=== PATIENT | male | born 1995 | race Two or more races ===

== ENCOUNTER 2024-09-17 11:20 | Inpatient (IN) | payer MEDICAID ==
[2024-09-17 12:37] LABS: Amphetamine Screen,Urine Not Detected (NotDetected); Barbiturate Screen,Urine Not Detected (NotDetected); Benzodiazepines Screen,Urine Detected (NotDetected); Cocaine Screen,Urine Not Detected (NotDetected); Methadone Screen, Urine Not Detected (NotDetected); Opiate Screen,Urine Not Detected (NotDetected); Oxycodone Screen, Urine Not Detected (NotDetected); Phencyclidine Screen,Urine Not Detected (NotDetected); Tricyclic Antidepressant,Urine Not Detected (NotDetected); Urn Cannabinoid Scrn Not Detected (NotDetected)
--- NOTE | 2024-09-17 13:07 | ED ---
Psych HPI - General Chief Complaint: Psychiatric Symptoms Stated Complaint: Mental health eval Time Seen by Provider: 09/17/24 11:26 Source: patient, RN notes reviewed Mode of arrival: ambulatory Limitations: no limitations - History of Present Illness Initial Comments: 29-year-old male presents emergency department chief complaint of needing psychiatric help. Patient states having worsening anxiety, panic attacks and downward spiral. Patient states that last few days he is been just taking excess amount of Xanax to help with his symptoms. He does see current psychiatry, and primary care physician. Patient states that symptoms are not helping. He states he has used hallucinogenic illicit drugs in the past. Patient denies any significant alcohol abuse denies current suicidal thoughts but states he does feel hopeless and does not want to live like this anymore. - Related Data Allergies Allergy/AdvReac Type Severity Reaction Status Date / Time No Known Allergies Allergy Verified 09/17/24 11:26 Review of Systems ROS Statement: Those systems with pertinent positive or pertinent negative responses have been documented in the HPI. ROS Other: All systems not noted in ROS Statement are negative. Past Medical History Past Medical History: No Reported History Past Surgical History: No Surgical Hx Reported Past Psychological History: Anxiety, Depression General Exam Limitations: no limitations General appearance: alert, in no apparent distress Head exam: Present: atraumatic, normocephalic, normal inspection Eye exam: Present: normal appearance, PERRL, EOMI. Absent: scleral icterus, conjunctival injection, periorbital swelling ENT exam: Present: normal exam, normal oropharynx, mucous membranes moist Neck exam: Present: normal inspection, full ROM. Absent: tenderness, meningismus, lymphadenopathy Respiratory exam: Present: normal lung sounds bilaterally. Absent: respiratory distress, wheezes, rales, rhonchi, stridor Cardiovascular Exam: Present: regular rate, normal rhythm, normal heart sounds. Absent: systolic murmur, diastolic murmur, rubs, gallop, clicks Neurological exam: Present: alert, oriented X3, CN II-XII intact Psychiatric exam: Present: flat affect Course Vital Signs 09/17/24 11:23 Temperature 98.6 F Pulse Rate 92 Respiratory 16 Rate Blood Pressure 141/96 O2 Sat by Pulse 99 Oximetry Medical Decision Making - Medical Decision Making Was pt. sent in by a medical professional or institution (, PA, FOCUSED FACTORY MANAGER, urgent care, hospital, or residential...) When possible be specific @ -No Did you speak to anyone other than the patient for history (EMS, parent, family, police, friend...)? What history was obtained from this source @ -No Did you review nursing and triage notes (agree or disagree)? Why? @ -I reviewed and agree with nursing and triage notes Were old charts reviewed (outside hosp., previous admission, EMS record, old EKG, old radiological studies, urgent care reports/EKG's, residential records)? Report findings @ -No old charts were reviewed Differential Diagnosis (chest pain, altered mental status, abdominal pain women, abdominal pain men, vaginal bleeding, weakness, fever, dyspnea, syncope, heada peyman, dizziness, GI bleed, back pain, seizure, CVA, palpatations, mental health, musculoskeletal)? @ -Differential Mental Health Depression, anxiety, bipolar, psychosis, schizophrenia, borderline personality, situational depression, adjustment disorder, behavioral disorder, brain tumor, malingering, substance abuse, encephalopathy, medication reaction, dementia, hypothyroidism, degenerative neurologic disorder, lupus.... This is not meant to be all-inclusive list EKG interpreted by me (3pts min.). @ -None X-rays interpreted by me (1pt min.). @ -None done CT interpreted by me (1pt min.). @ -None done U/S interpreted by me (1pt. min.). @ -None done What testing was considered but not performed or refused? (CT, X-rays, U/S, labs)? Why? @ -None What meds were considered but not given or refused? Why? @ -None Did you discuss the management of the patient with other professionals (professionals i.e. , PA, FOCUSED FACTORY MANAGER, lab, RT, psych nurse, high school social studies tutor, asset recovery specialist, teacher, code enforcement officer, outsole caser)? Give summary @ -EPS, psychiatry evaluated patient recommends inpatient treatment Was smoking cessation discussed for >3mins.? @ -No Was critical care preformed (if so, how long)? @ -No Were there social determinants of health that impacted care today? How? (Homelessness, low income, unemployed, alcoholism, drug addiction, transportation, low edu. Level, literacy, decrease access to med. care, care home, rehab)? @ -No Was there de-escalation of care discussed even if they declined (Discuss DNR or withdrawal of care, Hospice)? DNR status @ -No What co-morbidities impacted this encounter? (DM, HTN, Smoking, COPD, CAD, Cancer, CVA, ARF, Chemo, Hep., AIDS, mental health diagnosis, sleep apnea, morbid obesity)? @ -anxiety Was patient admitted / discharged? Hospital course, mention meds given and route, prescriptions, significant lab abnormalities, going to OR and other pertinent info. @ -Admit to 3 W. for treatment] Undiagnosed new problem with uncertain prognosis? @ -No Drug Therapy requiring intensive monitoring for toxicity (Heparin, Nitro, Insulin, Cardizem)? @ -No Were any procedures done? @ -No Diagnosis/symptom? @ -Depression, anxiety Acute, or Chronic, or Acute on Chronic? @ -Acute Uncomplicated (without systemic symptoms) or Complicated (systemic symptoms)? @ -Complicated Side effects of treatment? @ -No Exacerbation, Progression, or Severe Exacerbation? @ -No Poses a threat to life or bodily function? How? (Chest pain, [place], [place], pneumonia, PE, COPD, DKA, ARF, appy, cholecystitis, CVA, Diverticulitis, Homicidal, Suicidal, threat to staff... and all critical care pts) @ -No - Lab Data Lab Results 09/17/24 09/17/24 Range/Units 11:55 12:12 Urine Opiates Screen Not Detected (NotDetected) Ur Oxycodone Screen Not Detected (NotDetected) Urine Methadone Screen Not Detected (NotDetected) Ur Barbiturates Screen Not Detected (NotDetected) U Tricyclic Antidepress Not Detected (NotDetected) Ur Phencyclidine Scrn Not Detected (NotDetected) Ur Amphetamines Screen Not Detected (NotDetected) U Methamphetamines Scrn Not Detected (NotDetected) U Benzodiazepines Scrn Detected H (NotDetected) Urine Cocaine Screen Not Detected (NotDetected) U Marijuana (THC) Screen Not Detected (NotDetected) SARS-CoV-2 (PCR) Not Detected (Not Detectd) Disposition Clinical Impression: Depression, Acute anxiety Disposition: TRANSFER TO PSYCH HOSP/UNIT Referrals: Nonstaff,Physician [Primary Care Provider] - 1-2 days Time of Disposition: 14:02
[2024-09-17] MEDS ORDERED: IBUPROFEN 600 MG TAB PO PRN (14:09)
[2024-09-17] MEDS ORDERED: MAG HYDROX/AL HYDROX/SIMETH 355 ML BOTTLE PO PRN (14:09)
[2024-09-17] MEDS ORDERED: MAGNESIUM HYDROXIDE 2,400 MG/30 ML CUP PO PRN (14:09)
[2024-09-17] MEDS ORDERED: hydrOXYzine HCL 50 MG/ML 1 ML VIAL IM PRN (14:12)
[2024-09-17] MEDS ORDERED: OLANZapine 5 MG TAB PO PRN (14:12)
[2024-09-17] MEDS ORDERED: OLANZapine 10 MG VIAL IM PRN (14:12)
[2024-09-17] MEDS ORDERED: traZODone HCL 50 MG TAB PO PRN (14:12)
[2024-09-17] MEDS: NICOTINE 14MG/24HR PATCH TRANSDERM SCH (15:21)
[2024-09-17 17:35] LABS: Appearance,Urine Clear (Clear); Bilirubin,Urine Negative (Negative); Blood,Urine Negative (Negative); Color,Urine Yellow; Glucose,Urine (UA) Negative (Negative); Ketones,Urine Negative (Negative); Leukocyte Esterase,Urine Negative (Negative); Nitrite,Urine Negative (Negative); Protein,Urine Negative (Negative); Specific Gravity,Urine 1.026 (1.001-1.035); Urobilinogen,Urine <2.0 mg/dL (<2.0)
[2024-09-18 08:32] LABS: Basophils # (A) 0.1 k/uL (0-0.2); Basophils % (A) 1 %; Eosinophils # (A) 0.1 k/uL (0-0.7); Eosinophils % (A) 2 %; HCT 48.5 % (39.0-53.0); HGB 15.6 gm/dL (13.0-17.5); Lymphocytes # (A) 1.7 k/uL (1.0-4.8); Lymphocytes % (A) 25 %; MCH 26.9 pg (25.0-35.0); MCHC 32.1 g/dL (31.0-37.0); MCV 83.8 fL (80.0-100.0); Mean Platelet Volume 6.6; Monocytes # (A) 0.5 k/uL (0-1.0); Monocytes % (A) 7 %; Neutrophils # (A) 4.4 k/uL (1.3-7.7); Neutrophils % (A) 63 %; Platelet Count 376 k/uL (150-450); RBC 5.78 m/uL (4.30-5.90); RDW 12.8 % (11.5-15.5)
[2024-09-18 09:25] LABS: ALT 202 U/L (4-49); AST 57 U/L (17-59); African American GFR (CKD) >90 (>60 ml/min/1.73 sqM); Albumin 4.8 g/dL (3.5-5.0); Alkaline Phosphatase 61 U/L (38-126); Anion Gap 12 mmol/L; Blood Urea Nitrogen 15 mg/dL (9-20); Carbon Dioxide 28 mmol/L (22-30); Chloride 100 mmol/L (98-107); Glucose 92 mg/dL (74-99); Non-African American GFR(CKD) 81 (>60 ml/min/1.73 sqM); Potassium 4.8 mmol/L (3.5-5.1); Sodium 140 mmol/L (137-145); Total Bilirubin 0.8 mg/dL (0.2-1.3); Total Protein 8.3 g/dL (6.3-8.2)
[2024-09-18] MEDS: ACETAMINOPHEN TAB 325 MG TAB PO PRN (12:31)
[2024-09-18] MEDS: ARIPiprazole 5 MG TAB PO SCH (12:32)
[2024-09-18] MEDS ORDERED: clonazePAM 0.5 MG TAB PO PRN (12:55)
--- NOTE | 2024-09-18 13:05 | P.HP ---
Psychiatric H&P - . H&P Date: 09/18/24 History & Physical: Allergies Allergy/AdvReac Type Severity Reaction Status Date / Time No Known Allergies Allergy Verified 09/17/24 11:26 Vital Signs Temp 97.8 F 09/17/24 14:28 Pulse 79 09/17/24 14:28 Resp 16 09/17/24 14:28 BP 157/92 09/17/24 14:28 Pulse Ox 98 09/17/24 14:28 FiO2 Intake & Output 09/17/24 09/18/24 09/18/24 18:59 06:59 18:59 Weight 66.48 kg Laboratory Last Values WBC 7.0 k/uL (3.8-10.6) 09/18/24 08:05 RBC 5.78 m/uL (4.30-5.90) 09/18/24 08:05 Hgb 15.6 gm/dL (13.0-17.5) 09/18/24 08:05 Hct 48.5 % (39.0-53.0) 09/18/24 08:05 MCV 83.8 fL (80.0-100.0) 09/18/24 08:05 MCH 26.9 pg (25.0-35.0) 09/18/24 08:05 MCHC 32.1 g/dL (31.0-37.0) 09/18/24 08:05 RDW 12.8 % (11.5-15.5) 09/18/24 08:05 Plt Count 376 k/uL (150-450) 09/18/24 08:05 MPV 6.6 09/18/24 08:05 Neutrophils % 63 % 09/18/24 08:05 Lymphocytes % 25 % 09/18/24 08:05 Monocytes % 7 % 09/18/24 08:05 Eosinophils % 2 % 09/18/24 08:05 Basophils % 1 % 09/18/24 08:05 Neutrophils # 4.4 k/uL (1.3-7.7) 09/18/24 08:05 Lymphocytes # 1.7 k/uL (1.0-4.8) 09/18/24 08:05 Monocytes # 0.5 k/uL (0-1.0) 09/18/24 08:05 Eosinophils # 0.1 k/uL (0-0.7) 09/18/24 08:05 Basophils # 0.1 k/uL (0-0.2) 09/18/24 08:05 Sodium 140 mmol/L (137-145) 09/18/24 08:05 Potassium 4.8 mmol/L (3.5-5.1) 09/18/24 08:05 Chloride 100 mmol/L (98-107) 09/18/24 08:05 Carbon Dioxide 28 mmol/L (22-30) 09/18/24 08:05 Anion Gap 12 mmol/L 09/18/24 08:05 BUN 15 mg/dL (9-20) 09/18/24 08:05 Creatinine 1.21 mg/dL (0.66-1.25) 09/18/24 08:05 Est GFR (CKD-EPI)AfAm >90 (>60 ml/min/1.73 sqM) 09/18/24 08:05 Est GFR (CKD-EPI)NonAf 81 (>60 ml/min/1.73 sqM) 09/18/24 08:05 Glucose 92 mg/dL (74-99) 09/18/24 08:[address] Glu mg/dL 108 mg/dL 09/18/24 08:05 Hemoglobin A1c 5.4 % (<=6.0) 09/18/24 08:05 Calcium 10.0 mg/dL (8.4-10.2) 09/18/24 08:05 Total Bilirubin 0.8 mg/dL (0.2-1.3) 09/18/24 08:05 AST 57 U/L (17-59) 09/18/24 08:05 ALT 202 U/L (4-49) H 09/18/24 08:05 Alkaline Phosphatase 61 U/L (38-126) 09/18/24 08:05 Total Protein 8.3 g/dL (6.3-8.2) H 09/18/24 08:05 Albumin 4.8 g/dL (3.5-5.0) 09/18/24 08:05 TSH 2.590 mIU/L (0.465-4.680) 09/18/24 08:05 Urine Color Yellow 09/17/24 12:12 Urine Appearance Clear (Clear) 09/17/24 12:12 Urine pH 6.0 (5.0-8.0) 09/17/24 12:12 Ur Specific [place] 1.026 (1.001-1.035) 09/17/24 12:12 Urine Protein Negative (Negative) 09/17/24 12:12 Urine Glucose (UA) Negative (Negative) 09/17/24 12:12 Urine Ketones Negative (Negative) 09/17/24 12:12 Urine Blood Negative (Negative) 09/17/24 12:12 Urine Nitrite Negative (Negative) 09/17/24 12:12 Urine Bilirubin Negative (Negative) 09/17/24 12:12 Urine Urobilinogen <2.0 mg/dL (<2.0) 09/17/24 12:12 Ur Leukocyte Esterase Negative (Negative) 09/17/24 12:12 Urine Opiates Screen Not Detected (NotDetected) 09/17/24 12:12 Ur Oxycodone Screen Not Detected (NotDetected) 09/17/24 12:12 Urine Methadone Screen Not Detected (NotDetected) 09/17/24 12:12 Ur Barbiturates Screen Not Detected (NotDetected) 09/17/24 12:12 U Tricyclic Antidepress Not Detected (NotDetected) 09/17/24 12:12 Ur Phencyclidine Scrn Not Detected (NotDetected) 09/17/24 12:12 Ur Amphetamines Screen Not Detected (NotDetected) 09/17/24 12:12 U Methamphetamines Scrn Not Detected (NotDetected) 09/17/24 12:12 U Benzodiazepines Scrn Detected (NotDetected) H 09/17/24 12:12 Urine Cocaine Screen Not Detected (NotDetected) 09/17/24 12:12 U Marijuana (THC) Screen Not Detected (NotDetected) 09/17/24 12:12 SARS-CoV-2 (PCR) Not Detected (Not Detectd) 09/17/24 11:55 09/18/24 11:15 IDENTIFYING DATA: Patient is a 29-year-old male, single, lives with his brother in a condo, he has no kids, he is a outside residential sales professional working in [place] HPI: Patient presented to the hospital as a transfer from [place] for psychiatric evaluation. Patient was seen by EPS nurse and according to note "Upon assessment pt is under the blankets with his head nearly covered. Pt is cooperative with RN. Pt states that he has been struggling with a lack of reality. He feels he is not apart of this world. He feels he is disassociating more often. He states that he is finding it hard to work, eat, sleep, and care for hus household. He states that he has been hypersensitive, detached, and panicking. He feels withdrawn from everything and everyone. He believes stress does trigger alot of what he is feeling. 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 He does not use supports, he states he could speak with his parents but doesn't have them to worry or be a burden. He states he does have SI and worries about his safety. He denies any current plan. Pt denies HI or hallucinations. Pt does states that he does feel paranoid. "It feels like I am going crazy". He has a decreased appetite. Lack of sleep d/t being hyperaware and nervous/scared. He states that his hygiene has been "okay". Pts room does smell of sweat and appears slightly disheleved. Pt states that he is not caring for his household and doesn't clean. He states that he is scared and just stays in bed to distract himself. He states d/t this he has had to take a 6 week leave from work because he is not functioning as he normally does. Pt denies access to guns or weapons. Pt denies recent substance use or etoh. BAT 0. Pt does admit to using mushrooms from 2022 to October of 2023 and stopped d/t having to go to the hospital for a bad reaction. Pt fears for his safety." Patient was seen today agreeable to speak to song writer in the office. He was fairly cooperative during the interview, claims that he has a history of depression, claims that he tried Lexapro and 2021 however felt that he had "emotional blunting" and stopped taking the medications. States that he attempted to try psychedelic mushrooms in 2022 2023 time, last dose was in October 2023. States that it was giving him a "bad trip" and states that he was "losing correction[facility] facility psychiatrist on reality". States that he felt that his senses were more heightened and claims that since he is having more stress at work and also studying for exams he feels that he is still "tripping" from it since he has not been on it for quite some time. Claims that this is also leading to increased anxiety, using Xanax for panic attacks. States that he has been having mild depression at this time. Not endorsing any paranoia or or delusions. Claims that his sleep has been on and off, has been getting good help with the Remeron. Claims that his appetite has been on and off. States that he was having passive suicidal thoughts as he "did not want to live this way" however no specific plan, denying any homicidal ideations. At this time patient denies any auditory or visual hallucinations. Patient denies any flight of ideas racing thoughts and increased in goal directed behavior. Patient admits to using no other recreational drugs at this time cigarettes or marijuana. Patient's last use of hallucinogenic mushrooms were in October 2023. PAST PSYCHIATRIC HISTORY: Patient has a history of depression/anxiety. Claims that he has been on several different medications including Remeron, Lexapro, Xanax Zoloft and also Risperdal however some of these medications have made his symptoms worse. Patient denies any previous psychiatric hospitalizations. Claims that he did see a psychiatric nurse practitioner once before coming to the hospital. Patient denies any history of suicide attempts in the past. PMH: as per ER note ALLERGIES: as per EMR CHEMICAL DEPENDENCY HISTORY: as per HPI FAMILY PSYCHIATRIC/SUBSTANCE USE HISTORY: Claims that his brother has some form of "delusional disorder", also claims that his father was briefly on anti psychotics however not any longer SOCIAL HISTORY: Patient was born and raised in [place] [facility] 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 Denies ever been to fdc or senior care. He is single he has no kids. He lives in a condo with his brother. MENTAL STATUS EXAM: General Appearance: Patient appears to be short in stature, well-groomed, stated age is alert, directable, and attempts to cooperate. Patient appears to have fair hygiene and grooming. Behavior: Patient is seated without any agitated behavior. Cooperative Speech: Patient's speech is fluent and nonpressured. Mildly hesitant at times Mood/Affect: Patient reports their mood is "a bit depressed", affect is congruent Suicidality/Homicidality: Patient denies having any homicidal ideation intent or plan. Denies any suicidal ideations intent or plan Perceptions: Patient denies any visual hallucinations and denies any auditory hallucinations. He is stating that the lights and sounds are more magnified in the room however. Though content/process: There is no evidence of any delusional thought content and thought process is linear and goal-directed. Memory and concentration: AOX3, grossly intact for the purposes of this session. Can spell "WORLD" backwards Judgment and insight: Fair STRENGTHS/WEAKNESSES: strength is that patient is resilient. Weakness is that patient used psychedelic mushrooms heavily in the past, is also dealing with a lot of stressors from work and also home life INTELLECT: High IMPRESSIONS: Unspecified psychosis, rule out schizophrenia vs schizoaffective disorder vs drug induced psychosis vs persistent hallucinogenic perceptual disorder Hallucinogen use PLAN: -Patient is admitted under voluntary status to MHU for stabilization of psychiatric symptoms and safety. Patient has signed adult voluntary form and medication consent and is placed in patient's chart. -Medications : Patient is agreeable to try Abilify 2.5 mg daily for psychosis/mood stabilization/anxiety, remeron 7.5 mg qhs for insomnia/mood/sleep -klonopin, vistaril and zyprexa PRN for agitation/aggression and anxiety -Patient was counselled on substance abuse and desired to cut back on use -Patient was informed of the risks, benefits and side effects of the medication and patient verbally consented to taking the medications. Patient signed med con sent form and was placed in chart. -Internal Medicine consult to perform medical evaluation and physical. -NRT -not needed as patient does not smoke -SW on board for discharge planning. Encourage patient to participate in groups to work on coping skills. 09/18/24 12:56
--- NOTE | 2024-09-18 16:05 | P.CONS ---
History of Present Illness - History of Present Illness Patient is a 29-year-old male with past medical history of depression,, who was transferred for voluntary psychiatric hospitalization, evaluation of Unspecified psychosis, rule out schizophrenia vs schizoaffective disorder vs drug induced psychosis vs persistent hallucinogenic perceptual disorder Hallucinogen use Internal medicine consulted for medical management. Patient's vitals, remarkable for elevated BP reading 141/96, 157/92, 124., Afebrile, heart rate in the 70s, satting well on room air. CBC unremarkable, CMP remarkable for ALT 202. Urinalysis negative, urine toxicology for acute abnormalities, chronic symptoms. Pertinent positives and negatives as discussed in HPI, a complete review of systems was performed and all other systems are negative. Family history significant for hypertension, CAD CABG patient's father No personal history of hypertension, diabetes, hyperlipidemia. BMI is normal. Today complains of sinus congestion Patient seen and examined at bedside. [] Vital signs reviewed General: nontoxic, no distress, appears at stated age Derm: warm, dry Head: atraumatic, normocephalic, symmetric Eyes: EOMI, no lid lag, anicteric sclera, pupils equal round reactive to light ENT: Nose and ears atraumatic Neck: No thyromegaly, supple Mouth: no lip lesion, mucus membranes moist Cardiovascular: S1S2 reg, no murmur, no edema Lungs: clear to auscultation bilateral, no rhonchi, no rales, no wheeze, no accessory muscle use Abdominal: soft, nontender to palpation, no guarding, no appreciable organomegaly Ext: no gross muscle atrophy, muscle strength muscle strength 5 out of 5 in all 4 extremities, no contractures Neuro: CN II-XII grossly intact Psych: Alert, oriented, appropriate affect Assessment/Plan: Elevated blood pressure readings without diagnosis of hypertension -Monitor blood pressure. Possibly related to psychiatric condition -TSH normal, A1c normal Elevated ALT -Repeat CMP, possibly drug related Unspecified psychosis -psychiatry folloging Acute sinusitis: -loratadine daily, flonase. NO pseudofed duet to elevated BP Past Medical History Past Medical History: No Reported History History of Any Multi-Drug Resistant Organisms: None Reported Past Surgical History: Orthopedic Surgery Additional Past Surgical History / Comment(s): R arm surgery in childhood Past Anesthesia/Blood Transfusion Reactions: No Reported Reaction Past Psychological History: Anxiety, Depression Smoking Status: Never smoker - Past Family History Father Family Medical History: Coronary Artery Disease (CAD), Diabetes Mellitus Medications and Allergies Home Medications Medication Instructions Recorded Confirmed Type ALPRAZolam [Xanax] 0.25 mg PO DAILY PRN 09/17/24 09/17/24 History Mirtazapine [Remeron] 30 mg PO HS 09/17/24 09/17/24 History risperiDONE [RisperDAL] 0.125 mg PO HS 09/17/24 09/17/24 History Allergies Allergy/AdvReac Type Severity Reaction Status Date / Time No Known Allergies Allergy Verified 09/17/24 11:26 Physical Exam Vitals: Vital Signs Pulse Resp BP 09/18/24 12:53 82 16 134/68 Results CBC & Chem 7: 09/18/24 08:05 09/18/24 08:05 Labs: Abnormal Lab Results - Last 24 Hours (Table) 09/18/24 Range/Units 08:05 ALT 202 H (4-49) U/L Total Protein 8.3 H (6.3-8.2) g/dL
[2024-09-18] MEDS: FLUTICASONE NASAL 50MCG/SPRAY 16GM BTL EA NOSTRIL SCH (17:16)
[2024-09-18] MEDS: LORATADINE 10 MG TAB PO SCH (17:16)
[2024-09-18] MEDS: hydrOXYzine pamoate 25 MG CAP PO PRN (18:42)
[2024-09-18] MEDS: MIRTAZAPINE 15 MG TAB PO SCH (20:37)
[2024-09-19 08:49] LABS: ALT 149 U/L (4-49); AST 40 U/L (17-59); African American GFR (CKD) >90 (>60 ml/min/1.73 sqM); Albumin 4.7 g/dL (3.5-5.0); Alkaline Phosphatase 59 U/L (38-126); Anion Gap 12 mmol/L; Blood Urea Nitrogen 14 mg/dL (9-20); Calcium 9.8 mg/dL (8.4-10.2); Carbon Dioxide 28 mmol/L (22-30); Chloride 99 mmol/L (98-107); Glucose 113 mg/dL (74-99); Non-African American GFR(CKD) 84 (>60 ml/min/1.73 sqM); Potassium 4.4 mmol/L (3.5-5.1); Sodium 139 mmol/L (137-145); Total Bilirubin 0.5 mg/dL (0.2-1.3)
--- NOTE | 2024-09-19 11:49 | P.PN ---
Progress Note - Text Progress Note Date: 09/19/24 Interval history: Patient was seen today for psychiatric follow-up. Patient was seen taking part in group today doing a puzzle. He claims that after taking the Abilify he was feeling worse in terms of his visual and sensation perceptions. Claims that he is not feeling any better today, did not take Abilify this morning. States that the Vistaril did help a little bit for anxiety. He claims that he is feeling mild paranoia and mostly anxiety about not feeling better. Claims that he slept on and off last night with the Remeron. Claims that he is attempting to eat however appetite is still poor. We spoke about other medication options he is agreeable to try Lamictal and also clonidine. We spoke about the possibility of a rash from the Lamictal and to monitor his skin, he verbally understood and agreed. At this time he is denying any suicidal homicidal ideations intent or plan, denying any auditory hallucinations. MENTAL STATUS EXAM: General Appearance: Patient appears to be short in stature, well-groomed, stated age is alert, directable, and attempts to cooperate. Patient appears to have fair hygiene and grooming. Behavior: Patient is seated without any agitated behavior. Cooperative Speech: Patient's speech is fluent and nonpressured. Hesitant Mood/Affect: Patient reports their mood is "not that good", affect is congruent Suicidality/Homicidality: Patient denies having any homicidal ideation intent or plan. Denies any suicidal ideations intent or plan Perceptions: Patient denies any visual hallucinations and denies any auditory hallucinations. He is stating that the lights and sounds are more magnified in the room however, this is unchanged from yesterday Though content/process: There is no evidence of any delusional thought content and thought process is linear and goal-directed. [place] Memory and concentration: AOX3, grossly intact for the purposes of this session Judgment and insight: Fair IMPRESSIONS: Unspecified psychosis, rule out schizophrenia vs schizoaffective disorder vs drug induced psychosis vs persistent hallucinogenic perceptual disorder Hallucinogen use PLAN: -Patient is admitted under voluntary status to MHU for stabilization of psychiatric symptoms and safety. Patient has signed adult voluntary form and medication consent and is placed in patient's chart. -Medications : Discontinue Abilify due to lack of efficacy, he is agreeable to try Lamictal 25 mg bid for visual disturbances/mood stabilization, remeron 7.5 mg qhs for insomnia/mood/sleep. clonidine 0.1 mg qhs for sleep/visual disturbances. -klonopin, vistaril and zyprexa PRN for agitation/aggression and anxiety -NRT - not needed as patient does not smoke -SW on board for discharge planning. Encourage patient to participate in groups to work on coping skills.
[2024-09-19] MEDS: lamoTRIgine 25 MG TAB PO SCH (12:00)
[2024-09-19] MEDS: cloNIDine HCL 0.1 MG TAB PO SCH (21:03)
--- NOTE | 2024-09-20 11:10 | P.PN ---
Progress Note - Text Progress Note Date: 09/20/24 Interval history: Patient was seen wandering the hallways and was directable and agreeable to s peak with blog writer. Patient claims that he is still feeling a bit anxious at this time however does claim that the Lamictal did help a bit with the visual disturbances and also with his anxiety. Claims that his mood is also improving mildly since yesterday. States that he feels the Remeron did throw him off with sleep and would prefer to just stay on the clonidine and use trazodone as needed. He is more visible on the unit, is feeling more optimistic. Claims that he slept on and off last night appetite improving. At this time patient denies any suicidal or homicidal ideations intent or plan. Denies any Auditory or visual hallucinations. Patient denies any side effects from the medications and has been compliant with meds. Mental status exam: General Appearance: Patient appears to be short in stature, stated age is alert, directable, and cooperative. Behavior: No agitated behavior. Patient is calm and directable attempts to cooperate Speech: Patient's speech is fluent and nonpressured. Soft tone Mood/Affect: Mood is improving mildly, affect is congruent Suicidality/Homicidality: Patient denies having any suicidal or homicidal ideation intent or plan. Perceptions: Patient denies any auditory or visual hallucinations. Though content/process: There is no evidence of any delusional thought content and thought process is linear and goal-directed. Memory and concentration: AOX3, grossly intact for the purposes of this session Judgment and insight: improving mildly Assessment/Plan: Continue with current diagnosis. Patient continues to meet criteria for inpatient psychiatric admission for symptom stabilization and safety. Patient will be maintained on current psychotropic medication regimen, with the exception of discontinuing Remeron. Monitor for medication compliance and for any psychotropic medication side effects. Will continue to monitor ongoing response to treatment. Encouraged participation in milieu.
--- NOTE | 2024-09-21 12:32 | P.PN ---
Progress Note - Text Progress Note Date: 09/21/24 Interval history: Patient was seen wandering the hallways and was directable and agreeable to s peak with abstract writer. He claims that he is doing puzzles, participating in groups. States that his anxiety level is still a bit elevated however is improving. Claims that his mood is also improving. States that his parents have been fairly supportive his mother came to visit him yesterday. States that he has been having improvement in his visual disturbances and color patterns. Claims that he did have difficulty sleeping at nighttime and claims that a lot of it is mainly because of his roommate. He was agreeable to try a small dose of trazodone tonight. He is more visible on the unit, is feeling more optimistic. At this time patient denies any suicidal or homicidal ideations intent or plan. Denies any Auditory or visual hallucinations. Patient denies any side effects from the medications and has been compliant with meds. Mental status exam: General Appearance: Patient appears to be short in stature, stated age is alert, directable, and cooperative. Behavior: No agitated behavior. Patient is calm and directable attempts to cooperate, improving mildly Speech: Patient's speech is fluent and nonpressured. Soft tone improving mildly Mood/Affect: Mood is improving mildly, affect is congruent Suicidality/Homicidality: Patient denies having any suicidal or homicidal ideation intent or plan. Perceptions: Patient denies any auditory or visual hallucinations. Though content/process: There is no evidence of any delusional thought content and thought process is linear and goal-directed. Memory and concentration: AOX3, grossly intact for the purposes of this session Judgment and insight: improving mildly Assessment/Plan: Continue with current diagnosis. Patient continues to meet criteria for inpatient psychiatric admission for symptom stabilization and safety. Patient will be maintained on current psychotropic medication regimen, added trazodone 25 mg nightly for insomnia/mood. Increase Lamictal to 25 mg 3 times daily. He is not reporting any rash at this time, continuing to monitor this. Monitor for medication compliance and for any psychotropic medication side effects. Will continue to monitor ongoing response to treatment. Encouraged participation in milieu.
[2024-09-21] MEDS: lamoTRIgine 25 MG TAB PO SCH (16:02)
[2024-09-21] MEDS: traZODone HCL 50 MG TAB PO SCH (21:54)
--- NOTE | 2024-09-22 10:27 | P.PN ---
Progress Note - Text Progress Note Date: 09/22/24 Interval history: Patient was seen wandering the hallways and was directable and agreeable to s peak with filing writer. Patient was also seen playing cards earlier today with other patients. Claims that he is trying to busy doing activities on the unit. Claims that he feels that the trazodone did not sit well with him, made him too groggy in the morning. He prefers to be on melatonin which she will try tonight. Claims that the overall visual disturbances and delusions have improved since yesterday. Has been speaking with his family over the phone and are supportive of him. Has been eating well, showering. At this time patient denies any suicidal or homicidal ideations intent or plan. Denies any Auditory or visual hallucinations. Patient denies any side effects from the medications and has been compliant with meds. Mental status exam: General Appearance: Patient appears to be short in stature, stated age is alert, directable, and cooperative. Behavior: No agitated behavior. Patient is calm and directable attempts to cooperate, improving mildly Speech: Patient's speech is fluent and nonpressured. Soft tone improving mildly Mood/Affect: Mood is improving mildly, affect is congruent Suicidality/Homicidality: Patient denies having any suicidal or homicidal ideation intent or plan. Perceptions: Patient denies any auditory or visual hallucinations. Though content/process: There is no evidence of any delusional thought content and thought process is linear and goal-directed. Future oriented today Memory and concentration: AOX3, grossly intact for the purposes of this session Judgment and insight: improving mildly Assessment/Plan: Continue with current diagnosis. Patient continues to meet criteria for inpatient psychiatric admission for symptom stabilization and safety. Patient will be maintained on current psychotropic medication regimen, with the exception of discontinue trazodone due to oversedation and replace with melatonin 6 mg nightly for sleep. Can continue with lamictal to 25 mg 3 times daily. He is not reporting any rash at this time, continuing to monitor this. Monitor for medication compliance and for any psychotropic medication side effects. Will continue to monitor ongoing response to treatment. Encouraged participation in milieu. Likely discharge tomorrow if patient is improving.
[2024-09-22] MEDS: MELATONIN 3 MG TABLET PO SCH (23:08)
[2024-09-23 07:18] VITALS: BP 121/75; PULSE 58; RESP 14; TEMP 97.2
--- NOTE | 2024-09-23 12:04 | P.DS ---
Providers Date of admission: 09/17/24 14:08 Expected date of discharge: 09/23/24 Attending physician: David Meza MD Consults: 09/17/24 14:09 Consult Physician Routine Consulting Provider: [facility] Consult Reason/Comments: H&P Do you want consulting provider notified?: Yes Primary care physician: Physician Nonstaff - Discharge Diagnosis(es) (1) Suicidal ideation Current Visit: Yes Status: Acute Priority: High (2) Hallucinogen-induced persisting perception disorder Current Visit: Yes Status: Acute Priority: High (3) Hallucinogen use Current Visit: Yes Status: Acute Priority: Medium (4) Anxiety disorder, unspecified Current Visit: Yes Status: Acute Priority: Medium Hospital Course: Admission HPI: Admission note was completed by mortgage loan underwriter "patient is a 29-year-old male, single, lives with his brother in a condo, he has no kids, 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 Patient presented to the hospital as a transfer from [place] for psychiatric evaluation. Patient was seen by EPS nurse and according to note "Upon assessment pt is under the blankets with his head nearly covered. Pt is cooperative with RN. Pt states that he has been struggling with a lack of reality. He feels he is not apart of this world. He feels he is disassociating more often. He states that he is finding it hard to work, eat, sleep, and care for hus household. He states that he has been hypersensitive, detached, and panicking. He feels withdrawn from everything and everyone. He believes stress does trigger alot of what he is feeling. 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 He does not use supports, he states he could speak with his parents but doesn't have them to worry or be a burden. He states he does have SI and worries about his safety. He denies any current plan. Pt denies HI or hallucinations. Pt does states that he does feel paranoid. "It feels like I am going crazy". He has a decreased appetite. Lack of sleep d/t being hyperaware and nervous/scared. He states that his hygiene has been "okay". Pts room does smell of sweat and appears slightly disheleved. Pt states that he is not caring for his household and doesn't clean. He states that he is scared and just stays in bed to distract himself. He states d/t this he has had to take a 6 week leave from work because he is not functioning as he normally does. Pt denies access to guns or weapons. Pt denies recent substance use or etoh. BAT 0. Pt does admit to using mushrooms from 2022 to October of 2023 and stopped d/t having to go to the hospital for a bad reaction. Pt fears for his safety." Patient was seen today agreeable to speak to mortgage loan underwriter in the office. He was fairly cooperative during the interview, claims that he has a history of depression, claims that he tried Lexapro and 2021 however felt that he had "emotional blunting" and stopped taking the medications. States that he attempted to try psychedelic mushrooms in 2022 2023 time, last dose was in October 2023. 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 States that he felt that his senses were more heightened and claims that since he is having more stress at work and also studying for exams he feels that he is still "tripping" from it since he has not been on it for quite some time. Claims that this is also leading to increased anxiety, using Xanax for panic attacks. States that he has been having mild depression at this time. Not endorsing any paranoia or or delusions. Claims that his sleep has been on and off, has been getting good help with the Remeron. Claims that his appetite has been on and off. States that he was having passive suicidal thoughts as he "did not want to live this way" however no specific plan, denying any homicidal ideations. At this time patient denies any auditory or visual hallucinations. Patient denies any flight of ideas racing thoughts and increased in goal directed behavior. Patient admits to using no other recreational drugs at this time cigarettes or marijuana. Patient's last use of hallucinogenic mushrooms were in October 2023." Hospital course: Upon admission to the unit patient was directable and agreeable to commence treatment and signed adult voluntary form. Patient got along well with other patients on the unit and followed unit protocol. Patient was compliant with the medications however was tried on Abilify initially and had an increase in his perceptual disturbances and feeling more anxious, this was discontinued. Patient was started on Lamictal increased to a dose of 25 mg 3 times daily for perceptual disturbances/anxiety/mood stabilization, he was informed of the possibility of a rash and did not report this during hospitalization and will continue to monitor. Remeron was discontinued, replaced with clonidine 0.1 mg nightly for sleep/visual disturbances. Patient was also started on melatonin for sleep. Patient spoke of his stressors and engaged in therapy both group and individual. Patient was also seen by medical team for history and physical exam. Throughout the course of the hospitalization patient gradually improved with regards to mood, anxiety, visual disturbances, suicidal thoughts, sleep and became more future oriented with improved insight and judgment. On the day of discharge patient denied any suicidal or homicidal ideations intent or plan denied any auditory or visual hallucinations. Patient endorsed wanting to live for their health and family and his career. The patient denied any access to guns or weapons. Patient denied any paranoia and did not endorse any delusions. Patient does have a significant history of substance abuse and was counseled on abstaining from all substances including alcohol and marijuana. Patient was also counseled on the medications and need for regular compliance and was encouraged to follow-up with their outpatient appointment for mental health and also for primary care. Prior to discharge a family meeting will be arranged by psych social worker over the phone to answer any questions and ensure safety upon discharge incuding making sure that guns/weapons are either removed from the home or locked away. Mental status exam: General Appearance: Patient appears to be short in stature, stated age is alert, pleasant, and cooperative. Patient is in no acute distress and has improved hygiene and grooming. Behavior: Patient is calmly seated without any agitated behavior Speech: Patient's speech is fluent and nonpressured. Mood/Affect: Patient reports their mood is "good", affect is congruent and euthymic Suicidality/Homicidality: Patient denies having any suicidal or homicidal ideation intent or plan Perceptions: Patient denies any auditory or visual hallucinations. Though content/process: There is no evidence of any delusional thought content and thought process is linear and goal-directed. More future oriented Memory and concentration: AOX3, grossly intact for the purposes of this session. Can spell "WORLD" backwards correctly. 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 -Continue medications: Lamictal 25 mg 3 times daily for visual disturbances/mood stabilization/anxiety, clonidine 0.1 mg nightly for sleep/visual disturbances, melatonin 10 mg nightly for sleep -Patient was counseled on the need for medication compliance and appropriate follow-up at mental health and also primary care for medical issues. Patient verbalized understanding and agreed. -Social work to help coordinate patients discharge today as he will be discharged back home, his brother will be picking him up. also to ensure safe home environment that guns/weapons are either removed from the home or locked away. Social work also to arrange for patients follow up appointments for psychiatric care along with follow up with primary care provider. -Patient counseled on abstaining from recreational drugs and marijuana and alcohol. Was informed/educated on the adverse effects on their physical and mental health. Patient verbally agreed and understood. -Patient was instructed to return to the hospital or seek immediate medical care if their psychiatric or medical symptoms do worsen or reoccur. Allergies Allergy/AdvReac Type Severity Reaction Status Date / Time No Known Allergies Allergy Verified 09/17/24 11:26 Laboratory Results WBC 7.0 k/uL (3.8-10.6) 09/18/24 08:05 RBC 5.78 m/uL (4.30-5.90) 09/18/24 08:05 Hgb 15.6 gm/dL (13.0-17.5) 09/18/24 08:05 Hct 48.5 % (39.0-53.0) 09/18/24 08:05 MCV 83.8 fL (80.0-100.0) 09/18/24 08:05 MCH 26.9 pg (25.0-35.0) 09/18/24 08:05 MCHC 32.1 g/dL (31.0-37.0) 09/18/24 08:05 RDW 12.8 % (11.5-15.5) 09/18/24 08:05 Plt Count 376 k/uL (150-450) 09/18/24 08:05 MPV 6.6 09/18/24 08:05 Neutrophils % 63 % 09/18/24 08:05 Lymphocytes % 25 % 09/18/24 08:05 Monocytes % 7 % 09/18/24 08:05 Eosinophils % 2 % 09/18/24 08:05 Basophils % 1 % 09/18/24 08:05 Neutrophils # 4.4 k/uL (1.3-7.7) 09/18/24 08:05 Lymphocytes # 1.7 k/uL (1.0-4.8) 09/18/24 08:05 Monocytes # 0.5 k/uL (0-1.0) 09/18/24 08:05 Eosinophils # 0.1 k/uL (0-0.7) 09/18/24 08:05 Basophils # 0.1 k/uL (0-0.2) 09/18/24 08:05 Sodium 139 mmol/L (137-145) 09/19/24 08:17 Potassium 4.4 mmol/L (3.5-5.1) 09/19/24 08:17 Chloride 99 mmol/L (98-107) 09/19/24 08:17 Carbon Dioxide 28 mmol/L (22-30) 09/19/24 08:17 Anion Gap 12 mmol/L 09/19/24 08:17 BUN 14 mg/dL (9-20) 09/19/24 08:17 Creatinine 1.18 mg/dL (0.66-1.25) 09/19/24 08:17 Est GFR (CKD-EPI)AfAm >90 (>60 ml/min/1.73 sqM) 09/19/24 08:17 Est GFR (CKD-EPI)NonAf 84 (>60 ml/min/1.73 sqM) 09/19/24 08:17 Glucose 113 mg/dL (74-99) H 09/19/24 08:[address] Glu mg/dL 108 mg/dL 09/18/24 08:05 Hemoglobin A1c 5.4 % (<=6.0) 09/18/24 08:05 Calcium 9.8 mg/dL (8.4-10.2) 09/19/24 08:17 Total Bilirubin 0.5 mg/dL (0.2-1.3) 09/19/24 08:17 AST 40 U/L (17-59) 09/19/24 08:17 ALT 149 U/L (4-49) H 09/19/24 08:17 Alkaline Phosphatase 59 U/L (38-126) 09/19/24 08:17 Total Protein 8.0 g/dL (6.3-8.2) 09/19/24 08:17 Albumin 4.7 g/dL (3.5-5.0) 09/19/24 08:17 TSH 2.590 mIU/L (0.465-4.680) 09/18/24 08:05 Urine Color Yellow 09/17/24 12:12 Urine Appearance Clear (Clear) 09/17/24 12:12 Urine pH 6.0 (5.0-8.0) 09/17/24 12:12 Ur Specific [place] 1.026 (1.001-1.035) 09/17/24 12:12 Urine Protein Negative (Negative) 09/17/24 12:12 Urine Glucose (UA) Negative (Negative) 09/17/24 12:12 Urine Ketones Negative (Negative) 09/17/24 12:12 Urine Blood Negative (Negative) 09/17/24 12:12 Urine Nitrite Negative (Negative) 09/17/24 12:12 Urine Bilirubin Negative (Negative) 09/17/24 12:12 Urine Urobilinogen <2.0 mg/dL (<2.0) 09/17/24 12:12 Ur Leukocyte Esterase Negative (Negative) 09/17/24 12:12 Urine Opiates Screen Not Detected (NotDetected) 09/17/24 12:12 Ur Oxycodone Screen Not Detected (NotDetected) 09/17/24 12:12 Urine Methadone Screen Not Detected (NotDetected) 09/17/24 12:12 Ur Barbiturates Screen Not Detected (NotDetected) 09/17/24 12:12 U Tricyclic Antidepress Not Detected (NotDetected) 09/17/24 12:12 Ur Phencyclidine Scrn Not Detected (NotDetected) 09/17/24 12:12 Ur Amphetamines Screen Not Detected (NotDetected) 09/17/24 12:12 U Methamphetamines Scrn Not Detected (NotDetected) 09/17/24 12:12 U Benzodiazepines Scrn Detected (NotDetected) H 09/17/24 12:12 Urine Cocaine Screen Not Detected (NotDetected) 09/17/24 12:12 U Marijuana (THC) Screen Not Detected (NotDetected) 09/17/24 12:12 SARS-CoV-2 (PCR) Not Detected (Not Detectd) 09/17/24 11:55 Vital Signs Temp 97.2 F L 09/23/24 06:45 Pulse 58 L 09/23/24 06:45 Resp 14 09/23/24 06:45 BP 121/75 09/23/24 06:45 Pulse Ox 99 09/23/24 06:45 FiO2 Patient Condition at Discharge: Stable Plan - Discharge Summary New Discharge Prescriptions: New Loratadine [Claritin] 10 mg PO DAILY 30 Days #30 tab clonazePAM [KlonoPIN] 0.5 mg PO DAILY PRN 3 Days #3 tab PRN Reason: Anxiety lamoTRIgine [LaMICtal] 25 mg PO TID 30 Days #90 tab Ibuprofen [Motrin] 600 mg PO Q6HR PRN tab PRN Reason: Moderate Pain (Scale 4 To 6) cloNIDine HCL [Catapres] 0.1 mg PO HS 30 Days #30 tab Fluticasone Nasal [place] [Flonase Nasal [place]] 2 spray EA NOSTRIL DAILY 30 Days #1 ml Melatonin 6 mg PO HS tab Acetaminophen Tab [Tylenol] 650 mg PO Q4HR PRN tab PRN Reason: Mild Pain (Scale 1 To 3) hydrOXYzine pamoate [Vistaril] 50 mg PO BID PRN 30 Days #120 cap PRN Reason: Anxiety Discontinued Mirtazapine [Remeron] 30 mg PO HS ALPRAZolam [Xanax] 0.25 mg PO DAILY PRN PRN Reason: panic attacks risperiDONE [RisperDAL] 0.125 mg PO HS Discharge Medication List Acetaminophen Tab [Tylenol] 650 mg PO Q4HR PRN tab 09/23/24 [Rx] Fluticasone Nasal [place] [Flonase Nasal [place]] 2 spray EA NOSTRIL DAILY 30 Days #1 ml 09/23/24 [Rx] Ibuprofen [Motrin] 600 mg PO Q6HR PRN tab 09/23/24 [Rx] Loratadine [Claritin] 10 mg PO DAILY 30 Days #30 tab 09/23/24 [Rx] Melatonin 6 mg PO HS tab 09/23/24 [Rx] cloNIDine HCL [Catapres] 0.1 mg PO HS 30 Days #30 tab 09/23/24 [Rx] clonazePAM [KlonoPIN] 0.5 mg PO DAILY PRN 3 Days #3 tab 09/23/24 [Rx] hydrOXYzine pamoate [Vistaril] 50 mg PO BID PRN 30 Days #120 cap 09/23/24 [Rx] lamoTRIgine [LaMICtal] 25 mg PO TID 30 Days #90 tab 09/23/24 [Rx] Follow up Appointment(s)/Referral(s): Counseling, [facility] [Other] - 10/08/24 10:00 am (10/08/2024 @ 10:00 w/ [employer] Carolyn first available if pt needs to change appt they must call 48 hours in advance ) [facility] Patient Instructions/Handouts: Psychiatric Hallucinations (DC), Psychotic Disorder (DC) Activity/Diet/Wound Care/Special Instructions: [facility] Discharge Info Avoid the use of street drugs and alcohol. Take all medications as prescribed. When you are in need of refills on your medications, please contact your outpatient medical provider and/or outpatient psychiatrist. Please go to your scheduled outpatient appointments for aftercare treatment. If symptoms return or become worse, call the crisis line at or and/or visit the nearest emergency room for assistance. National Suicide and Crisis Lifeline - call or text 864 Discharge Disposition: HOME SELF-CARE
== END 2024-09-23 14:03 | disposition home or self-care (01) | DRG 897 ==
LOC: EC 11:20 → 3MHU 14:08
PROVIDERS: ADMIT Psychiatry & Neurology Psychiatry; ATTEND Psychiatry & Neurology Psychiatry
DX: F16.951 Hallucinogen use, unspecified with hallucinogen-induced psychotic disorder with hallucinations (principal); R45.851 Suicidal ideations; F32.A Depression, unspecified; G47.00 Insomnia, unspecified; J01.90 Acute sinusitis, unspecified; F41.0 Panic disorder [episodic paroxysmal anxiety]; H53.9 Unspecified visual disturbance; R03.0 Elevated blood-pressure reading, without diagnosis of hypertension; R74.01 Elevation of levels of liver transaminase levels; Z71.51 Drug abuse counseling and surveillance of drug abuser; Z11.52 Encounter for screening for COVID-19; Z28.21 Immunization not carried out because of patient refusal
CPT/HCPCS: 80053; 80306; 81003; 82075; 83036; 84443; 85025; 87635; 99285